=== PATIENT | female | born 1975 | race Caucasian/White ===

== ENCOUNTER → 2017-05-07 | Outpatient (CLI) | payer OTHER ==
--- NOTE | 2017-05-07 13:53 | RAD ---
Examination: X-rays of the left knee. Clinical history: Left knee pain, denies injury or trauma. Technique: Three views of the left knee were obtained. Comparison: None available. Findings: No acute fracture, dislocation, or destructive bony lesion is noted. No arthropathy is appreciated. No joint effusion or soft tissue abnormality is noted. Impression: 1. No acute fracture or dislocation. Reported By:
== END | disposition home or self-care (01) | DRG 556 ==
LOC: RAD 13:11
PROVIDERS: ATTEND Internal Medicine
DX: M25.562 Pain in left knee (principal)
CPT/HCPCS: 73560